=== PATIENT | male | born 1990 | race Caucasian/White ===

== ENCOUNTER 2019-12-06 14:31 | Emergency (ER) | payer OTHER, SELFPAY ==
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
[2019-12-06 14:31] VITALS: BP 123/76; PULSE 101; RESP 20; TEMP 36.7; O2SAT 100
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
[2019-12-06 16:18] LABS: Basophils Absolute Auto 0.1 K/mm3 (0.0-0.1); Basophils Percent Auto 0.4 % (0.2-1.2); Eosinophils Percent Auto 0.3 % (0-4.4); Hematocrit 39.4 % (42.0-52.0); Hemoglobin 13.5 g/dL (14.0-18.0); Immature Granulocyte Absolute 0.05 K/mm3 (0.00-0.031); Immature Granulocyte Percent A 0.4 % (0-0.5); Lymphocytes Absolute Auto 1.13 K/mm3 (0.9-3.2); Lymphocytes Percent Auto 8.3 % (18.3-44.2); Mean Corpuscular HGB Conc 34.3 g/dl (32-36); Mean Corpuscular Hemoglobin 30.4 pg (26-34); Mean Corpuscular Volume 88.7 fl (80-100); Mean Platelet Volume 8.9 fl (7.4-10.4); Monocytes Absolute Auto 0.9 K/mm3 (0.1-0.6); Monocytes Percent Auto 6.7 % (2.6-8.5); Neutrophils Absolute Auto 11.5 K/mm3 (1.3-6.7); Neutrophils Percent Auto 83.9 % (45.5-73.1); Platelet Count Result 327 k/mm3 (150-375); Red Blood Count 4.44 M/mm3 (4.6-6.20); White Blood Count 13.7 K/mm3 (4.5-10.0)
[2019-12-06 16:25] VITALS: BP 143/101; PULSE 89; RESP 20; O2SAT 100
[2019-12-06 16:29] LABS: Alanine Aminotransferase 24 U/L (4-50); Albumin Level 4.7 g/dL (3.5-5.1); Alkaline Phosphatase 70 U/L (38-126); Aspartate Amino Transferase 37 U/L (17-59); Bilirubin,Total 0.7 mg/dL (0.2-1.3); Blood Urea Nitrogen 18 mg/dL (9-20); Calcium 9.2 mg/dL (8.4-10.2); Carbon Dioxide 26 mmol/L (22-30); Chloride 105 mmol/L (98-107); Estimated CRCL calculation 110 ml/min; Estimated Glomerular Filt Rate > 60; Glucose 101 mg/dL (75-110); Potassium 4.4 mmol/L (3.4-5.0); Sodium 138 mmol/L (137-145)
[2019-12-06] MEDS: ONDANSETRON INJ 4 MG/2 ML VIAL IV PUSH (16:40)
[2019-12-06] MEDS: MORPHINE SULFATE 2 MG/ML INJ IV PUSH (16:41)
[2019-12-06 16:45] VITALS: BP 137/84; PULSE 91; RESP 20; O2SAT 100
[2019-12-06 17:00] VITALS: BP 161/98; PULSE 85; RESP 20; O2SAT 98
[2019-12-06 19:05] VITALS: BP 142/74; PULSE 85; RESP 20; O2SAT 99
--- NOTE | 2019-12-06 21:46 | PC.NURSE ---
Cleaned and bandaged wounds. pt tolerated well.
[2019-12-06 21:47] VITALS: BP 132/70; PULSE 80; RESP 18; O2SAT 98
== END 2019-12-06 21:48 | disposition home or self-care (01) ==
PROVIDERS: Physician Assistant; Emergency Provider Emergency Medicine
DX: S01.21XA Laceration without foreign body of nose, initial encounter (principal); S01.511A Laceration without foreign body of lip, initial encounter; S31.119A Laceration without foreign body of abdominal wall, unspecified quadrant without penetration into peritoneal cavity, initial encounter; S62.525A Nondisplaced fracture of distal phalanx of left thumb, initial encounter for closed fracture; F32.9 Major depressive disorder, single episode, unspecified; V28.4XXA Motorcycle driver injured in noncollision transport accident in traffic accident, initial encounter
CPT/HCPCS: 12001; 12013; 29130; 36415; 70450; 70486; 71046; 71100; 71260; 73130; 73502; 74177; 80053; 85025; 85610; 85730; 96365; 96375; 99284; A9270; J0131; J2270; J2405; Q9967